=== PATIENT | female | born 1990 | race American Indian/Alaskan Native ===

== ENCOUNTER 2017-10-04 05:13 | Emergency (ER) | payer OTHER ==
[2017-10-04] MEDS ORDERED: GEODON IM ONE ×2 (07:20→07:34)
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
[2017-10-04 08:10] LABS: Basophils % (Auto) 0.4 % (0.0-1.8); Eosinophils % (Auto) 0.1 % (0.0-4.3); Hematocrit 38.2 % (30.3-42.9); Hemoglobin 12.7 gm/dl (10.1-14.3); Lymphocytes # (Auto) 2.9 K/mm3 (1.2-5.4); Lymphocytes % (Auto) 29.2 % (13.4-35.0); Mean Corpuscular HGB Conc 33 % (30-34); Mean Corpuscular Hemoglobin 28 pg (28-32); Mean Corpuscular Volume 84 fl (79-97); Monocytes # (Auto) 0.7 K/mm3 (0.0-0.8); Platelet Count 242 K/mm3 (140-440); Red Blood Count 4.55 M/mm3 (3.65-5.03); Red Cell Distribution Width 13.2 % (13.2-15.2)
[2017-10-04 08:29] LABS: Alanine Aminotransferase 12 units/L (7-56); Albumin 4.4 g/dL (3.9-5); BUN/Creatinine Ratio 17; Blood Urea Nitrogen 12 mg/dL (7-17); Calcium 9.6 mg/dL (8.4-10.2); Hemolysis Index 1
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
[2017-10-04 19:36] LABS: Bilirubin,Urine NEG (Negative); Blood,Urine NEG (Negative); Color,Urine Yellow (Yellow); Mucus,Urine FEW /HPF; Nitrite,Urine NEG (Negative); Protein,Urine <15 mg/dL mg/dL (Negative); Urobilinogen,Urine < 2.0 mg/dL (<2.0)
[2017-10-04 19:44] LABS: Amphetamine Screen,Urine PRESUMPTIVE NEGATIVE; Cannabinoid Screen,Urine PRESUMPTIVE NEGATIVE; Cocaine Screen,Urine PRESUMPTIVE NEGATIVE; Methadone Screen,Urine PRESUMPTIVE NEGATIVE; Opiate Screen,Urine PRESUMPTIVE NEGATIVE
[2017-10-04 20:20] LABS: Benzodiazepines Screen,Urine PRESUMPTIVE POSITIVE
[2017-10-04 22:00] LABS: Lipase 30 units/L (13-60)
[2017-10-04] MEDS: GEODON PO SCH (23:03)
[2017-10-05] MEDS ORDERED: HALDOL ONE (02:20)
[2017-10-05] MEDS: HALDOL IM PRN ×2 (02:28→11:15)
[2017-10-05] MEDS: GEODON PO SCH ×2 (10:08→21:40)
[2017-10-05] MEDS ORDERED: WATER FOR INJ (PF) 10 ML ONE (14:55)
[2017-10-05] MEDS ORDERED: GEODON IM ONE ×2 (14:55)
[2017-10-05 22:08] VITALS: BP 119/81
== END 2017-10-06 03:30 ==
LOC: EEVIPCON 05:13 → ED 05:13
DX: F23 Brief psychotic disorder (principal); R45.851 Suicidal ideations
CPT/HCPCS: 36415; 80053; 80164; 80307; 81001; 82150; 83690; 84703; 85025; 96372; 99284; G0480; J1630; J3486; 80320